=== PATIENT | male | born 1960 | race African-American/Black ===

== ENCOUNTER 2024-12-20 03:52 | Inpatient (IN) | payer MEDICAID, OTHER ==
[~2024-12-20] VITALS: Ht 167.6 cm; Wt 69.9 kg
[2024-12-20] VITALS (7 sets, daily range): BP systolic 98–114; BP diastolic 60–69; PULSE 71–114; RESP 16–22; TEMP 36.1–37.2; O2SAT 92–98
[2024-12-20 04:36] LABS: BASOPHILS % 0.4 % (0.0-2.0); EOSINOPHILS % 0.3 % (0.0-5.0); HEMATOCRIT. 42.6 % (42.0-52.0); HEMOGLOBIN. 14.2 g/dL (14.0-18.0); LYMPHOCYTES % 12.1 % (20.0-50.0); MEAN CORPUSCULAR HEMOGLOBIN 30.1 pg (28.0-32.0); MEAN CORPUSCULAR HGB CONC 33.3 g/dL (31.0-37.0); MEAN CORPUSCULAR VOLUME 90.3 fL (80.0-94.0); MEAN PLATELET VOLUME 8.7 fl (7.4-10.4); MONOCYTES % 9.9 % (2.0-8.0); NEUTROPHILS % 77.3 % (40.0-76.0); PLATELET 242 x1000/uL (130-400); RED BLOOD CELL COUNT 4.71 mill/uL (4.7-6.1); RED CELL DISTRIBUTION WIDTH 15.5 % (11.6-14.6)
[2024-12-20] MEDS: LEVETIRACETAM 500MG PREMIX 100 ML IV ONE (04:44)
[2024-12-20 04:53] LABS: CHLORIDE 99 mEq/L (98-107); SODIUM 142 mEq/L (136-145)
[2024-12-20 04:54] LABS: CALCIUM 9.8 mg/dL (8.7-10.4); CARBON DIOXIDE 30 mEq/L (21-32)
[2024-12-20 04:59] LABS: CREATININE 1.6 mg/dL (0.6-1.3); GLUCOSE 151 mg/dL (70-105); UREA NITROGEN BLOOD 17 mg/dL (9-23)
[2024-12-20 05:00] LABS: TROPONIN I HIGH SENSITIVITY 48 ng/L (3.0-53)
[2024-12-20 05:05] LABS: POTASSIUM 2.4 mEq/L (3.5-5.1)
[2024-12-20 07:54] LABS: TROPONIN I HIGH SENSITIVITY 39 ng/L (3.0-53)
[2024-12-20] MEDS ORDERED: DEXTROSE 50% WATER 50ML SYRINGE IV PRN (08:30)
[2024-12-20] MEDS: POTASSIUM CHLORIDE 20MEQ TABLET SR PO NR ×2 (09:33→21:35)
[2024-12-20] MEDS: KCL 20MEQ/100ML PREMIX 100 ML IV SCH (09:33)
[2024-12-20] MEDS: ASPIRIN 81MG TABLET PO SCH (09:33)
[2024-12-20] MEDS ORDERED: SERT-422 PO (10:54)
[2024-12-20] MEDS ORDERED: HYDR-3735 PO (10:54)
[2024-12-20] MEDS ORDERED: FINA5TAB11 PO (10:54)
[2024-12-20] MEDS: BLOOD SUGAR DIAGNOSTIC STRIP TEST SCH (11:45)
[2024-12-20 11:53] LABS: THYROID STIMULATING HORMONE 3.07 uIU/mL (0.55-4.78)
[2024-12-20] MEDS: INSULIN LISPRO 100 UNITS/ML SUBCUT SCH (12:15)
[2024-12-20 17:27] LABS: POTASSIUM 3.2 mEq/L (3.5-5.1)
[2024-12-20] MEDS: ENOXAPARIN 40MG/0.4ML SYR SUBCUT SCH (17:45)
[2024-12-20] MEDS: SODIUM CHLORIDE 0.9% 1,000 ML IV SCH (17:50)
[2024-12-20] MEDS ORDERED: POTASSIUM CHLORIDE 20MEQ TABLET SR PO ONE (21:30)
[2024-12-20] MEDS: ATORVASTATIN CALCIUM 40MG TABLET PO SCH (21:33)
[2024-12-20] MEDS: SERTRALINE HCL 50MG TABLET PO SCH (21:34)
[2024-12-20] MEDS: HYDROXYZINE 25MG TABLET PO SCH (21:34)
[2024-12-21] VITALS: BP 121/78; PULSE 92; RESP 16; TEMP 37.2; O2SAT 97
[2024-12-21 04:00] VITALS: BP 144/98; PULSE 97; RESP 16; TEMP 36.2; O2SAT 97
[2024-12-21 06:15] LABS: BASOPHILS % 0.3 % (0.0-2.0); DIFFERENTIAL COMMENT 0; EOSINOPHILS % 0.9 % (0.0-5.0); HEMATOCRIT. 42.2 % (42.0-52.0); HEMOGLOBIN. 14.5 g/dL (14.0-18.0); LYMPHOCYTES % 19.1 % (20.0-50.0); MEAN CORPUSCULAR HEMOGLOBIN 30.4 pg (28.0-32.0); MEAN CORPUSCULAR HGB CONC 34.3 g/dL (31.0-37.0); MEAN CORPUSCULAR VOLUME 88.6 fL (80.0-94.0); MONOCYTES % 12.4 % (2.0-8.0); NEUTROPHILS % 67.3 % (40.0-76.0); PLATELET 240 x1000/uL (130-400); RED BLOOD CELL COUNT 4.76 mill/uL (4.7-6.1); RED CELL DISTRIBUTION WIDTH 15.3 % (11.6-14.6)
[2024-12-21 06:23] LABS: POTASSIUM 3.3 mEq/L (3.5-5.1)
[2024-12-21 08:00] VITALS: BP 129/77; PULSE 66; RESP 19; TEMP 36.9; O2SAT 96
[2024-12-21 08:10] LABS: CREATININE 2.6 mg/dL (0.6-1.3)
[2024-12-21] MEDS: PANTOPRAZOLE SODIUM 40 MG/VIAL IV SCH (09:26)
[2024-12-21] MEDS: FINASTERIDE 5MG TABLET PO SCH (09:27)
[2024-12-21] MEDS: POTASSIUM CHLORIDE 20MEQ TABLET SR PO SCH (09:27)
[2024-12-21 12:00] VITALS: BP 136/85; PULSE 65; PULSE 73; RESP 18; RESP 19; TEMP 36.8; O2SAT 99
[2024-12-21 16:00] VITALS: BP 141/76; PULSE 69; RESP 18; TEMP 36.8; O2SAT 98
[2024-12-21] MEDS ORDERED: POTASSIUM CHLORIDE 20MEQ TABLET SR PO NR (17:15)
[2024-12-21] MEDS: SODIUM CHLORIDE 0.9% 1,000 ML IV SCH (19:14)
[2024-12-21 20:00] VITALS: BP 156/86; PULSE 59; RESP 16; TEMP 36.6; O2SAT 96
[2024-12-22] VITALS: BP 162/84; PULSE 58; RESP 16; TEMP 36.3; O2SAT 97
[2024-12-22 04:00] VITALS: BP 162/85; PULSE 52; RESP 18; TEMP 36.2; O2SAT 99
[2024-12-22 06:28] LABS: POTASSIUM 3.7 mEq/L (3.5-5.1)
[2024-12-22 06:30] LABS: CALCIUM 9.8 mg/dL (8.7-10.4)
[2024-12-22] MEDS: CLONIDINE 0.1MG TABLET PO PRN (06:31)
[2024-12-22 06:34] LABS: BASOPHILS % 0.4 % (0.0-2.0); EOSINOPHILS % 1.8 % (0.0-5.0); HEMATOCRIT. 40.4 % (42.0-52.0); HEMOGLOBIN. 13.6 g/dL (14.0-18.0); LYMPHOCYTES % 20.2 % (20.0-50.0); MEAN CORPUSCULAR HEMOGLOBIN 29.8 pg (28.0-32.0); MEAN CORPUSCULAR HGB CONC 33.6 g/dL (31.0-37.0); MEAN CORPUSCULAR VOLUME 88.6 fL (80.0-94.0); MEAN PLATELET VOLUME 9.2 fl (7.4-10.4); MONOCYTES % 10.4 % (2.0-8.0); NEUTROPHILS % 67.2 % (40.0-76.0); PLATELET 221 x1000/uL (130-400); RED BLOOD CELL COUNT 4.56 mill/uL (4.7-6.1); RED CELL DISTRIBUTION WIDTH 15.4 % (11.6-14.6)
[2024-12-22 07:15] LABS: CREATININE 1.5 mg/dL (0.6-1.3)
[2024-12-22 08:00] VITALS: BP 158/88; PULSE 62; RESP 18; TEMP 36.7; O2SAT 98
[2024-12-22] MEDS: ENOXAPARIN 30MG/0.3ML SYR SUBCUT SCH (10:18)
[2024-12-22 12:47] VITALS: BP 160/89; PULSE 62; RESP 18; TEMP 36.4; O2SAT 98
[2024-12-22 13:11] LABS: CLARITY URINE CLEAR (CLEAR); COLOR URINE YELLOW (YELLOW); GLUCOSE URINE NEGATIVE (NEGATIVE); KETONES URINE NEGATIVE (NEGATIVE); LEUKOCYTE ESTERASE URINE 1+ (NEGATIVE); NITRITE URINE NEGATIVE (NEGATIVE); OCCULT BLOOD URINE NEGATIVE (NEGATIVE); PROTEIN URINE NEGATIVE (NEGATIVE); SPECIFIC GRAVITY URINE 1.018 (1.005-1.030)
[2024-12-22 13:24] LABS: BACTERIA URINE FEW; RBC URINE NONE SEEN /hpf (0-2); SQUAMOUS EPITHELIAL CELL URINE NONE SEEN /lpf (RARE/1+); YEAST URINE NONE SEEN
[2024-12-22 13:27] LABS: *AMPHETAMINES SCREEN URINE NEGATIVE (NEGATIVE); *BARBITURATES SCREEN URINE NEGATIVE (NEGATIVE); *BENZODIAZEPINES SCREEN URINE NEGATIVE (NEGATIVE); *COCAINE SCREEN URINE NEGATIVE (NEGATIVE)
[2024-12-22 13:28] LABS: CANNABINOID URINE SCREEN PRESUMPTIVE POSITIVE (NEGATIVE); ECSTASY MDMA SCREEN URINE NEGATIVE (NEGATIVE); METHADONE URINE SCREEN NEGATIVE (NEGATIVE); OPIATES URINE SCREEN NEGATIVE (NEGATIVE); PHENCYCLIDINE URINE SCREEN NEGATIVE (NEGATIVE)
[2024-12-22 14:25] VITALS: BP 158/76; PULSE 62; TEMP 97.6; O2SAT 98
== END 2024-12-22 14:46 | disposition home or self-care (01) | DRG 48 ==
LOC: ER 03:52 → 5WST 05:30 → EDBEDREQ 05:42 → EDBEDREQTM 05:42
PROVIDERS: ADMIT Internal Medicine; ATTEND Internal Medicine
DX: G90.89 Other disorders of autonomic nervous system (principal); N17.0 Acute kidney failure with tubular necrosis; E87.6 Hypokalemia; I10 Essential (primary) hypertension; N40.0 Benign prostatic hyperplasia without lower urinary tract symptoms; F32.A Depression, unspecified; Z59.00 Homelessness unspecified; Z79.899 Other long term (current) drug therapy
CPT/HCPCS: 36415; 71045; 73030; 80048; 80061; 80305; 81003; 82962; 83036; 83880; 84132; 84443; 84484; 85025; 93005; 99285; C1893; J1650; J1815; J1953; J2470; J3480; J7030